=== PATIENT | female | born 1980 | race Caucasian/White ===

== ENCOUNTER 2016-11-16 16:57 | Emergency (ER) | payer MEDICAID ==
[~2016-11-16] VITALS: Ht 149.9 cm; Wt 56.8 kg
[~2016-11-16 16:57] MED LIST: DSS100 PO; FERR-72 PO; IBUP-2070 PO; PREN-146 PO
[2016-11-16 17:09] VITALS: BP 127/91
[2016-11-16 17:17] LABS: GLUCOSE,POINT OF CARE 117 MG/DL (70-110)
== END 2016-11-16 17:28 | disposition left against medical advice (07) ==
LOC: EEVIPCON 17:00 → EMS 17:00
DX: R10.84 Generalized abdominal pain (principal); R11.2 Nausea with vomiting, unspecified; F15.90 Other stimulant use, unspecified, uncomplicated; F17.210 Nicotine dependence, cigarettes, uncomplicated; Z53.21 Procedure and treatment not carried out due to patient leaving prior to being seen by health care provider
CPT/HCPCS: 82962

== ENCOUNTER 2016-11-16 19:07 | Emergency (ER) | payer MEDICAID ==
[~2016-11-16] VITALS: Ht 149.9 cm; Wt 56.8 kg
[2016-11-16 22:07] LABS: BASOPHILS # (AUTO) 0.01 K/uL (0.00-0.20); BASOPHILS % (AUTO) 0.1 % (0.0-2.0); EOSINOPHILS # (AUTO) 0.05 K/uL (0.00-0.70); EOSINOPHILS % (AUTO) 0.64 % (1.0-6.0); HEMATOCRIT 26.3 % (36-46); HEMOGLOBIN 8.1 g/dL (12.0-16.0); LYMPHOCYTES # (AUTO) 2.1 K/uL (1.0-4.8); MEAN CORPUSCULAR HEMOGLOBIN 19.8 pg (26.0-34.0); MEAN CORPUSCULAR HGB CONC 30.9 G/dL (31.0-37.0); MEAN CORPUSCULAR VOLUME 64 fL (80-100); MONOCYTES # (AUTO) 0.4 K/uL (0.1-1.0); MONOCYTES % (AUTO) 4.1 % (2.0-9.0); NEUTROPHILS # (AUTO) 6.1 K/uL (1.8-7.7); NEUTROPHILS % (AUTO) 71.3 % (40.0-70.0); PLATELET COUNT (AUTO) 274 K/uL (150-450); RED CELL DISTRIBUTION WIDTH 20.6 % (11.5-14.5); WHITE BLOOD COUNT (AUTO) 8.6 K/uL (4.5-11.0)
[2016-11-16 22:23] LABS: ANION GAP 12 mmol/L (8-16); CALCIUM, TOTAL 8.8 mg/dL (8.8-10.5); CARBON DIOXIDE 23 mmol/L (22-29); CHLORIDE 104 mmol/L (98-107); CREATININE 0.52 mg/dL (0.60-1.30); GLOMERULAR FILTR. RATE CALC > 60 mL/min (>60); SODIUM SERUM 139 mmol/L (136-145); UREA NITROGEN, BLOOD 8 mg/dL (7-18)
[2016-11-16 22:29] LABS: RBC MORPHOLOGY COMMENT ABNORMAL RBC MORPH
[2016-11-16 22:37] LABS: ALANINE AMINOTRANSFERASE 65 U/L (12-78); ALBUMIN 2.2 g/dL (3.4-5.0); ASPARTATE AMINOTRANSFERASE 33 U/L (15-37); BILIRUBIN,TOTAL 0.2 mg/dL (0.1-1.0); TOTAL PROTEIN, SERUM 6.6 g/dL (6.4-8.2)
[2016-11-17 01:01] VITALS: BP 115/69
== END 2016-11-17 01:54 | disposition home or self-care (01) ==
LOC: EMS 19:13
DX: O26.893 Other specified pregnancy related conditions, third trimester (principal); R10.84 Generalized abdominal pain; F15.90 Other stimulant use, unspecified, uncomplicated; F17.210 Nicotine dependence, cigarettes, uncomplicated; Z59.0 Homelessness; Z3A.31 31 weeks gestation of pregnancy
CPT/HCPCS: 76805; 80053; 83690; 84702; 84703; 85025; 99285; G0480

== ENCOUNTER 2016-11-17 01:35 | Observation (INO) | payer MEDICAID ==
[~2016-11-17] VITALS: Ht 149.9 cm; Wt 54.9 kg
[2016-11-17 02:19] LABS: GLUCOSE, URINE (UA) NEGATIVE (NEGATIVE); KETONES,URINE NEGATIVE (NEGATIVE); LEUKOCYTE ESTERASE ,URINE SMALL (NEGATIVE); OCCULT BLOOD,URINE NEGATIVE (NEGATIVE); PH,URINE 6.5 (5.0-8.0); PROTEIN,URINE NEGATIVE (NEGATIVE)
[2016-11-17 02:20] LABS: ADD UA MICROSCOPIC YES; APPEARANCE,URINE HAZY (CLEAR)
[2016-11-17 02:22] VITALS: BP 121/59
[2016-11-17 02:31] LABS: RBC,URINE 0-2 /HPF (0-2); SQUAMOUS EPITHELIAL CELL,UR Few /LPF (None Seen)
== END 2016-11-17 03:00 | disposition home or self-care (01) ==
LOC: 4S 01:35
PROVIDERS: ADMIT Obstetrics & Gynecology; ATTEND Obstetrics & Gynecology
DX: O26.893 Other specified pregnancy related conditions, third trimester (principal); R10.9 Unspecified abdominal pain; Z3A.31 31 weeks gestation of pregnancy
CPT/HCPCS: 59025; 80307 ×8; 81001; G0378

== ENCOUNTER 2017-08-08 01:53 | Emergency (ER) | payer MEDICAID ==
[~2017-08-08] VITALS: Ht 149.9 cm; Wt 58.0 kg
[2017-08-08 02:38] LABS: BASOPHILS % (AUTO) 0.4 % (0.0-2.0); EOSINOPHILS % (AUTO) 0.2 % (1.0-6.0); HEMATOCRIT 27.6 % (36-46); HEMOGLOBIN 8.8 g/dL (12.0-16.0); LYMPHOCYTES # (AUTO) 2.4 K/uL (1.0-4.8); LYMPHOCYTES % (AUTO) 27.9 % (22.0-44.0); MEAN CORPUSCULAR HEMOGLOBIN 21.5 pg (26.0-34.0); MEAN CORPUSCULAR VOLUME 67 fL (80-100); MONOCYTES # (AUTO) 0.6 K/uL (0.1-1.0); MONOCYTES % (AUTO) 6.6 % (2.0-9.0); NEUTROPHILS # (AUTO) 5.5 K/uL (1.8-7.7); NEUTROPHILS % (AUTO) 64.9 % (40.0-70.0); PLATELET COUNT (AUTO) 474 K/uL (150-450); RED BLOOD CELL COUNT(AUTO) 4.11 MIL/uL (4.00-5.20); RED CELL DISTRIBUTION WIDTH 20.3 % (11.5-14.5); WHITE BLOOD COUNT (AUTO) 8.5 K/uL (4.5-11.0)
[2017-08-08 02:47] LABS: ANION GAP 10 mmol/L (8-16); CALCIUM, TOTAL 8.3 mg/dL (8.8-10.5); CARBON DIOXIDE 26 mmol/L (22-29); CHLORIDE 101 mmol/L (98-107); CREATININE 0.48 mg/dL (0.60-1.30); GLOMERULAR FILTR. RATE CALC > 60 mL/min (>60); POTASSIUM 3.2 mmol/L (3.5-5.1); SODIUM SERUM 137 mmol/L (136-145); UREA NITROGEN, BLOOD 11 mg/dL (7-18)
[2017-08-08 02:53] LABS: ALANINE AMINOTRANSFERASE 27 U/L (12-78); ALBUMIN 3.4 g/dL (3.4-5.0); ASPARTATE AMINOTRANSFERASE 19 U/L (15-37); BILIRUBIN,TOTAL 0.2 mg/dL (0.1-1.0)
[2017-08-08 02:57] LABS: APPEARANCE,URINE CLEAR (CLEAR); GLUCOSE, URINE (UA) NEGATIVE (NEGATIVE); KETONES,URINE NEGATIVE (NEGATIVE); LEUKOCYTE ESTERASE ,URINE TRACE (NEGATIVE); OCCULT BLOOD,URINE SMALL (NEGATIVE); PH,URINE 6.5 (5.0-8.0); PROTEIN,URINE NEGATIVE (NEGATIVE)
[2017-08-08 03:17] LABS: RBC MORPHOLOGY COMMENT ABNORMAL RBC MORPH
[2017-08-08 03:22] LABS: SQUAMOUS EPITHELIAL CELL,UR Moderate /LPF (None Seen); WBC,URINE 0-2 /HPF (0-5)
[2017-08-08] MEDS ORDERED: POTASSIUM CHLORIDE 10% 40 MEQ/30 ML LIQUID UDCUP PO ONE (05:45)
[2017-08-08 05:52] VITALS: BP 122/81
== END 2017-08-08 05:54 | disposition home or self-care (01) ==
LOC: EMS 01:54
DX: O26.891 Other specified pregnancy related conditions, first trimester (principal); O99.011 Anemia complicating pregnancy, first trimester; E87.6 Hypokalemia; F15.10 Other stimulant abuse, uncomplicated; Z59.0 Homelessness; Z3A.00 Weeks of gestation of pregnancy not specified
CPT/HCPCS: 76801; 99285

== ENCOUNTER 2018-10-09 21:49 | Emergency (ER) | payer MEDICAID | END 2018-10-10 00:33 | disposition left against medical advice (07) | LOC: EDUNIT# 21:49 → EMS 21:51 | DX: R10.9 Unspecified abdominal pain (principal); Z53.21 Procedure and treatment not carried out due to patient leaving prior to being seen by health care provider ==